=== PATIENT | female | born 1995 | race Hispanic/Latino ===

== ENCOUNTER 2020-04-19 10:53 | Emergency (ER) | payer OTHER ==
[2020-04-19 12:10] LABS: Absolute Lymphocytes (CBC) 2.4 K/uL (0.7-4.9); Basophils % 0.3 % (0-1.3); Hematocrit 37.1 % (36.0-45.0); Lymphocytes % 21.5 % (15.3-44.8); MPV 7.8 fL (7.6-11.3); RBC Red Blood Cell Count 4.18 M/uL (3.86-4.86)
[2020-04-19 12:28] LABS: BUN Blood Urea Nitrogen 16 mg/dL (7-18); Bicarbonate 25 mmol/L (21-32); Glucose Level 93 mg/dL (74-106); Potassium 3.8 mmol/L (3.5-5.1); Sodium Level 139 mmol/L (136-145)
[2020-04-19 13:09] LABS: Urine Blood 1+ (NEG); Urine Glucose NEGATIVE (NEG); Urine Protein NEGATIVE (NEG); Urine Specific Gravity 1.015 (1.005-1.030)
[2020-04-19] MEDS ORDERED: CEFTRIAXONE/SWI 1gm 1 GM/10 ML SYR ONE (13:33)
[2020-04-19 13:44] LABS: HCG, Quantitative 96250 mIU/mL (1-3)
--- NOTE | 2020-04-19 14:02 | RAD REPORT ---
EXAM DESCRIPTION: US - Transvaginal Study Probe - 04/19/2020 1:35 pm CLINICAL HISTORY: Pelvic pain / vag bleeding COMPARISON: none FINDINGS: The uterus measures 9 x 5 x 6cm. A gestational sac is present within the endometrium. With in this is a yolk sac and pole measuring 5 millimeters. Cardiac activity 132 beats per minute. Two very small subchorionic bleeds. Left ovary was not visualized secondary to overlying bowel gas. Left adnexae is unremarkable Right ovary normal in size and echotexture containing small hemorrhagic follicle. Right adnexal unrem arkable No significant free fluid is seen. IMPRESSION: Single live intrauterine with estimated gestational age 6 weeks 2 days YENNI
--- NOTE | 2020-04-19 14:10 | EDPHYS ---
Physician Documentation [facility] Name: Karen Bailon Age: 24 yrs Sex: Female : 1995 Arrival Date: 04/19/2020 Time: 10:57 Bed 18 Private MD: ED Physician Cody Chau HPI: 04/19 11:55 This 24 yrs old Female presents to ER via Ambulatory with complaints of 7wks mh7 , Vaginal Bleeding. 11:55 The patient presents to the emergency department with vaginal bleeding, described as mh7 spotting. The estimated gestational age is 7 weeks. course: care: none, Leakage of Fluid: none appreciated, Ultrasound: the patient has not had an ultrasound, Risk/complications: previous miscarriage. Previous pregnancies: in previous pregnancies patient has had , Associated signs and symptoms: Pertinent positives: vaginal bleeding, Pertinent negatives: abdominal pain, chest pain, diarrhea, dysuria, fever, frequency, nausea, ruptured membranes, seizure, shortness of breath, vaginal discharge, vomiting. 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 - Social history:: Smoking status: Patient denies any tobacco usage or history of. Patient uses street drugs, marijuana. ROS: 11:55 Constitutional: Negative for fever, chills, and weight loss, Eyes: Negative for injury, mh7 pain, redness, and discharge, ENT: Negative for injury, pain, and discharge, Neck: Negative for injury, pain, and swelling, Cardiovascular: Negative for chest pain, palpitations, and edema, Respiratory: Negative for shortness of breath, cough, wheezing, and pleuritic chest pain, Abdomen/GI: Negative for abdominal pain, nausea, vomiting, diarrhea, and constipation, Back: Negative for injury and pain, MS/Extremity: Negative for injury and deformity, Skin: Negative for injury, rash, and discoloration, Neuro: Negative for headache, weakness, numbness, tingling, and seizure, Psych: Negative for depression, anxiety, suicide ideation, homicidal ideation, and hallucinations, Allergy/Immunology: Negative for hives, rash, and allergies, Endocrine: Negative for neck swelling, polydipsia, polyuria, polyphagia, and marked weight changes, Hematologic/Lymphatic: Negative for swollen nodes, abnormal bleeding, and unusual bruising. Exam: 11:55 Constitutional: This is a well developed, well nourished patient who is awake, alert, mh7 and in no acute distress. Head/Face: Normocephalic, atraumatic. Eyes: Pupils equal round and reactive to light, extra-ocular motions intact. Lids and lashes normal. Conjunctiva and sclera are non-icteric and not injected. Cornea within normal limits. Periorbital areas with no swelling, redness, or edema. Neck: Trachea midline, no thyromegaly or masses palpated, and no cervical lymphadenopathy. Supple, full range of motion without nuchal rigidity, or vertebral point tenderness. No Meningismus. Chest/axilla: Normal chest wall appearance and motion. Nontender with no deformity. No lesions are appreciated. Cardiovascular: Regular rate and rhythm with a normal S1 and S2. No gallops, murmurs, or rubs. Normal PMI, no JVD. No pulse deficits. Respiratory: Lungs have equal breath sounds bilaterally, clear to auscultation and percussion. No rales, rhonchi or wheezes noted. No increased work of breathing, no retractions or nasal flaring. Abdomen/GI: Soft, non-tender, with normal bowel sounds. No distension or tympany. No guarding or rebound. No evidence of tenderness throughout. Back: No spinal tenderness. No costovertebral tenderness. Full range of motion. Skin: Warm, dry with normal turgor. Normal color with no rashes, no lesions, and no evidence of cellulitis. MS/ Extremity: Pulses equal, no cyanosis. Neurovascular intact. Full, normal range of motion. Neuro: Awake and alert, GCS 15, oriented to person, place, time, and situation. Cranial nerves II-XII grossly intact. Motor strength 5/5 in all extremities. Sensory grossly intact. Cerebellar exam normal. Normal gait. Psych: Awake, alert, with orientation to person, place and time. Behavior, mood, and affect are within normal limits. 14:09 : CVA tenderness, is absent, Pelvic Exam: The exam is refused by the [facility] patient/guardian. The risks and consequences are understood by the patient, Gravid exam: Bladder: is normal, Sexual behavior: the patient is sexually active, and reports a single partner. Vital Signs: 11:10 BP 105 / 67; Pulse 91; Resp 18; Temp 98.2; Pulse Ox 100% on R/A; Weight 45.36 kg; ph Height 5 ft. 2 in. (157.48 cm); Pain 0/10; 11:10 Body Mass Index 18.29 (45.36 kg, 157.48 cm) ph MDM: 11:53 Patient medically screened. [facility] 14:07 Differential diagnosis: threatened Ab, inevitable Ab, complete Ab, retained Ab, septic mh7 Ab, missed Ab, ectopic . Data reviewed: vital signs, nurses notes, lab test result(s), Beta HCG: CBC, electrolytes, Rh: positive urinalysis. Data interpreted: monitor technician: rate is 91 beats/min, rhythm is normal sinus rhythm, regular, Interpretation: normal rate, normal rhythm, Pulse oximetry: on room air is 100 %. Interpretation: normal. Counseling: I had a detailed discussion with the patient and/or guardian regarding: the historical points, exam findings, and any diagnostic results supporting the discharge/admit diagnosis, lab results, radiology results, the need for outpatient follow up, to return to the emergency department if symptoms worsen or persist or if there are any questions or concerns that arise at home. 04/19 11:24 Order name: Urine Dipstick--Ancillary (enter results); Complete Time: 13:49 04/19 11:24 Order name: Urine --Ancillary (enter results); Complete Time: 13:09 04/19 11:49 Order name: Abo/rh Typing; Complete Time: 12:55 [facility] 04/19 11:49 Order name: Basic Metabolic Panel; Complete Time: 13:49 [facility] 04/19 11:49 Order name: CBC with Diff; Complete Time: 12:16 [facility] 04/19 11:49 Order name: Test, Serum; Complete Time: 13:09 [facility] 04/19 11:49 Order name: IV Saline Lock; Complete Time: 12:08 [facility] 04/19 11:49 Order name: Labs collected and sent; Complete Time: 12:09 [facility] 04/19 11:49 Order name: NPO; Complete Time: 11:52 [facility] 04/19 11:49 Order name: Urine Dipstick-Ancillary (obtain specimen); Complete Time: 11:52 [facility] 04/19 11:49 Order name: Urine Test (obtain specimen); Complete Time: 11:52 [facility] 04/19 12:56 Order name: Transvaginal Study (probe) [facility] 04/19 12:59 Order name: HCG, Quantitative; Complete Time: 13:49 [facility] 04/19 13:38 Order name: Labs - recollect needed: collect abo\E\rh no charge; Complete Time: 17:00 bd Administered Medications: No medications were administered Disposition: 04/19/20 14:09 Discharged to Home. Impression: Threatened , Urinary tract infection, site not specified. - Condition is Stable. - Discharge Instructions: Urinary Tract Infection, Adult, Threatened Miscarriage, [id number]. - Prescriptions for Macrobid 100 mg Oral Capsule - take 1 capsule by ORAL route every 12 hours for 7 days; 14 capsule. - Medication Reconciliation Form, Thank You Letter, Antibiotic Education, Prescription Opioid Use form. - Follow up: Kenan Perdomo MD; When: 2 - 3 days; Reason: Worsening of condition, Recheck today's complaints. - Problem is new. - Symptoms are resolved. Signatures: Dispatcher [employer] [facility] Isidra Wolf Patricia, RN RN ph Odell, Maria Teresa kj1 Cody Chau MD MD 7 Corrections: (The following items were deleted from the chart) 12:59 12:56 QUANTITATIVE HCG+C.LAB.BRZ ordered. [facility] 15:17 14:09 04/19/2020 14:09 Discharged to Home. Impression: Threatened ; Urinary kj1 tract infection, site not specified. Condition is Stable. Forms are Medication Reconciliation Form, Thank You Letter, Antibiotic Education, Prescription Opioid Use. Follow up: Kenan Perdomo; When: 2 - 3 days; Reason: Worsening of condition, Recheck today's complaints. Problem is new. Symptoms are resolved. [facility]
--- NOTE | 2020-04-19 14:10 | ER ---
Nurse's Notes [facility] Name: Karen Bailon Age: 24 yrs Sex: Female : 1995 Arrival Date: 04/19/2020 Time: 10:57 Bed 18 Private MD: Diagnosis: Threatened ;Urinary tract infection, site not specified Presentation: 04/19 11:10 Chief complaint: Patient states: Approx 7 weeks , light spotting x 3 days and ph passed a blood clot this morning, denies abdominal pain. Coronavirus screen: Patient denies a cough. Patient denies shortness of breath or difficulty breathing. Patient denies measured and/or subjective temperature greater than 100.4F prior to today's visit. Patient denies travel on a cruise ship or to a country the [facility] currently lists as an affected area. Patient denies contact with known and/or suspected case of COVID-19. Ebola Screen: No symptoms or risks identified at this time. Initial Sepsis Screen: Does the patient meet any 2 criteria? No. Patient's initial sepsis screen is negative. Does the patient have a suspected source of infection? No. Patient's initial sepsis screen is negative. Risk Assessment: Do you want to hurt yourself or someone else? Patient reports no desire to harm self or others. Onset of symptoms was April 19, 2020. 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 - Social history:: Smoking status: Patient denies any tobacco usage or history of. Patient uses street drugs, marijuana. Screenin:12 Abuse screen: Denies threats or abuse. Nutritional screening: No deficits noted. Tuberculosis screening: No symptoms or risk factors identified. Fall Risk None identified. Assessment: 11:30 General: Appears in no apparent distress. Behavior is calm, cooperative. Pain: Denies pain. Neuro: Level of Consciousness is awake, alert, Oriented to person, place, time, situation. Cardiovascular: Capillary refill < 3 seconds Patient's skin is warm and dry. Respiratory: Airway is patent Respiratory effort is even, unlabored. GI: Bowel sounds present X 4 quads. Reports cramping. : Reports cramping, vaginal bleeding that is with clots, spotty, Denies burning with urination, Parent/caregiver report the patient having. Derm: Skin is intact, is healthy with good turgor. 12:30 Reassessment: Patient is alert, oriented x 3, equal unlabored respirations, skin ah warm/dry/pink. NO needs voiced at this time. Vital Signs: 11:10 BP 105 / 67; Pulse 91; Resp 18; Temp 98.2; Pulse Ox 100% on R/A; Weight 45.36 kg; ph Height 5 ft. 2 in. (157.48 cm); Pain 0/10; 11:10 Body Mass Index 18.29 (45.36 kg, 157.48 cm) ph ED Course: 10:57 Patient arrived in ED. mr 11:11 Triage completed. ph 11:12 Arm band placed on Patient placed in an exam room. 11:19 Cody Chau MD is Attending Physician. [facility] 11:26 Marylin Carvalho, RN is Primary Nurse. 12:00 Initial lab(s) drawn, by sc, sent to lab. Inserted saline lock: 22 gauge in right kj1 antecubital area, using aseptic technique. Blood collected. 12:03 Test, Serum Sent. kj1 12:12 Patient has correct armband on for positive identification. Bed in low position. Call light in reach. Side rails up X 1. Pulse ox on. NIBP on. 12:30 No provider procedures requiring assistance completed. IV discontinued, intact, bleeding controlled, No redness/swelling at site. Pressure dressing applied. 13:35 Transvaginal Study (probe) In Process Unspecified. EDMS 14:08 Kenan Perdomo MD is Referral Physician. 7 Administered Medications: No medications were administered Outcome: 14:09 Discharge ordered by . [facility] 15:10 Discharged to home ambulatory. 15:10 Condition: good 15:10 Discharge instructions given to patient, Instructed on discharge instructions, follow up and referral plans. Demonstrated understanding of instructions, follow-up care, medications, Prescriptions given X 2. 15:17 Patient left the ED. kj1 Signatures: Dispatcher [employer] EDMS Terry Octavia Mesha Parada RN RN ph Jackson, Kandis kj1 Marylin Carvalho RN RN ah Holmes, Maurice, MD MD mh7
[2020-04-19 15:30] VITALS: BP 105/67; TEMP 98.2; O2SAT 100
== END 2020-04-19 15:17 | disposition home or self-care (01) ==
LOC: ER 10:53
DX: O20.0 Threatened abortion (principal); Z3A.01 Less than 8 weeks gestation of pregnancy; O23.41 Unspecified infection of urinary tract in pregnancy, first trimester
CPT/HCPCS: 85025; 80048; 36415; 86900; 84703; 81025; 86901; 84702; 81003; 76830; 99284; J0696